=== PATIENT | male | born 1955 | race Caucasian/White ===

== ENCOUNTER → 2023-05-28 16:41 | Outpatient (REF) | payer MEDICARE, BC, SELFPAY | LOC: HWRAD 16:41 | PROVIDERS: ATTENDING PHYSICIAN Internal Medicine | DX: R05.9 Cough, unspecified (principal) | CPT/HCPCS: 71046 ==

== ENCOUNTER → 2024-06-25 12:52 | Outpatient (REF) | payer MEDICARE, BC, SELFPAY | LOC: RSP 12:52 | PROVIDERS: ATTENDING PHYSICIAN Internal Medicine; FAMILY PHYSICIAN Internal Medicine | DX: J45.40 Moderate persistent asthma, uncomplicated (principal) | CPT/HCPCS: 94727; 94729; 88738; 94060 ==